=== PATIENT | male | born 1980 | race Caucasian/White ===

== ENCOUNTER 2017-07-28 00:33 | Emergency (ER) | payer MEDICARE ==
[~2017-07-28] VITALS: Ht 167.6 cm; Wt 71.1 kg
[2017-07-28 00:36] VITALS: BP 138/84
[2017-07-28] MEDS ORDERED: INSULIN REGULAR 100 UNITS/ML, 3ML VIAL ONE (01:08)
[2017-07-28] MEDS ORDERED: INSULIN REGULAR 100 UNITS/ML, 3ML VIAL SQ-INSULIN SCH (01:30)
[2017-07-28] MEDS ORDERED: INSULIN REGULAR 100 UNITS/ML, 3ML VIAL SQ-INSULIN ONE (01:30)
== END 2017-07-28 01:31 | disposition home or self-care (01) ==
LOC: ED 01:00
DX: E11.65 Type 2 diabetes mellitus with hyperglycemia (principal); Z79.4 Long term (current) use of insulin
CPT/HCPCS: 82962; 96372

== ENCOUNTER 2018-06-09 18:45 | Inpatient (IN) | payer MEDICARE, BC ==
[~2018-06-09] VITALS: Ht 167.6 cm; Wt 66.0 kg
[2018-06-09] MEDS ORDERED: SODIUM CHLORIDE FLUSH 10ML SYR IVF ONE (19:30)
[2018-06-09 19:32] LABS: BASOPHILS # (AUTO) 0.04 x10^3/uL (0-0.1); BASOPHILS % (AUTO) 1 % (0-1); EOSINOPHILS # (AUTO) 0.14 x10^3/uL (0-0.4); EOSINOPHILS % (AUTO) 2 % (1-7); LYMPHOCYTES # (AUTO) 2.57 x10^3/uL (1-3.4); LYMPHOCYTES % (AUTO) 36 % (22-44); MD NO; MEAN CORPUSCULAR HGB CONC 33.3 g/dL (33.2-36.2); MEAN CORPUSCULAR VOLUME 84.1 fL (81-97); MEAN PLATELET VOLUME 8.5 fL (7.4-10.4); MONOCYTES # (AUTO) 0.41 x10^3/uL (0.2-0.8); MONOCYTES % (AUTO) 6 % (2-9); NEUTROPHILS # (AUTO) 4.08 x10^3/uL (1.8-6.8); NEUTROPHILS % (AUTO) 56 % (42-75); PLATELET COUNT 269 x10^3/uL (130-400); RED BLOOD COUNT 5.17 x10^6/uL (4.38-5.82)
[2018-06-09 19:44] LABS: ALBUMIN 3.5 g/dL (3.4-5.0); ANION GAP 5 mmol/L (5-15); CALCIUM 9.1 mg/dL (8.5-10.1); CHLORIDE 107 mmol/L (98-107); CREATININE 0.99 mg/dL (0.7-1.3)
[2018-06-09] MEDS ORDERED: SHORT ACTING INSULIN (22:21)
[2018-06-09] MEDS ORDERED: LONG ACTING INSULIN (22:21)
[2018-06-09] MEDS ORDERED: CLINDAMYCIN PMX 300MG/50ML 50 ML IV ONE (22:30)
[2018-06-09] MEDS ORDERED: SODIUM CHLORIDE FLUSH 10ML SYR IVF PRN (23:30)
[2018-06-10] VITALS: BP_SYST 115; BP_SYST 134; BP_DIAS 74; BP_DIAS 77
[2018-06-10] MEDS ORDERED: OMNIPAQUE 350 MG/ML, 100ML BOTTLE ONE (01:03)
[2018-06-10] MEDS: INSULIN LISPRO 100 UNITS/ML, PEN SQ-INSULIN SCH ×2 (07:00→12:09)
[2018-06-10] MEDS ORDERED: CLINDAMYCIN PMX 600MG/50ML 50 ML IV SCH (07:30)
[2018-06-10] MEDS ORDERED: SODIUM CHLORIDE 0.9% 1,000 ML IV SCH (07:30)
[2018-06-10 08:27] VITALS: BP 108/69
[2018-06-10] MEDS ORDERED: INSULIN LISPRO 100 UNITS/ML, PEN SQ-INSULIN SCH (11:00)
[2018-06-10 13:49] VITALS: BP 107/68
[2018-06-10] MEDS ORDERED: INSU100V8 SQ (14:31)
[2018-06-10] MEDS ORDERED: INSULIN GLARGINE 100 UNITS/ML, PEN SQ-INSULIN SCH (21:00)
[2018-06-11] MEDS ORDERED: SODIUM CHLORIDE 0.9% 1,000 ML IV SCH (07:30)
== END 2018-06-10 15:38 | disposition left against medical advice (07) | DRG 156 ==
LOC: ED 19:04 → EDIP 23:19 → 4NOR 06-10 00:11
PROVIDERS: ADMIT Internal Medicine; ATTEND Internal Medicine
DX: K11.5 Sialolithiasis (principal); H91.90 Unspecified hearing loss, unspecified ear; F17.210 Nicotine dependence, cigarettes, uncomplicated; E11.65 Type 2 diabetes mellitus with hyperglycemia; K11.3 Abscess of salivary gland; Z53.21 Procedure and treatment not carried out due to patient leaving prior to being seen by health care provider; Z82.3 Family history of stroke; Z79.899 Other long term (current) drug therapy
CPT/HCPCS: 36415; 70491; 80048; 82040; 82962; 85025; 96365; Q9967; J1815; J7030

== ENCOUNTER 2019-10-27 18:10 | Emergency (ER) | payer BC, MEDICARE ==
[~2019-10-27] VITALS: Ht 167.6 cm; Wt 78.0 kg
[~2019-10-27 18:10] MED LIST: INSU100V8 SQ; LONG ACTING INSULIN; SHORT ACTING INSULIN
[2019-10-27 18:19] VITALS: BP 133/68
== END 2019-10-27 19:25 | disposition home or self-care (01) ==
LOC: ED 19:20
DX: K08.89 Other specified disorders of teeth and supporting structures (principal); E11.9 Type 2 diabetes mellitus without complications; Z87.891 Personal history of nicotine dependence
CPT/HCPCS: 99283